=== PATIENT | female | born 1955 | race American Indian/Alaskan Native ===

== ENCOUNTER 2018-01-09 10:17 | Outpatient (CLI) | payer MEDICAID ==
--- NOTE | 2018-01-09 11:04 | Cat Scan Report ---
CT chest without contrast: COPD. Transverse images are obtained through the chest into the upper abdomen. Coronal and sagittal 2-D reformatted images included. No axillary adenopathy. 1.4 cm right pretracheal lymph node and a 9.4 mm left pretracheal lymph node. No obvious hilar adenopathy. The central airways are patent. The thoracic aorta is normal in size. Normal sized heart. Scattered blebs in periphery both upper lobes with some scattered emphysematous changes throughout both lungs. The lungs are generally hyperinflated. There is focal linear atelectasis or scarring in the right middle lobe. Irregular shaped non-spiculated 6 x 14 mm mass in the right apex. Diffuse thoracic spondylosis with prominent kyphotic curvature. Impressions: 1. Suspicious right upper lobe mass and enlarged mediastinal lymph nodes. Additional evaluation is recommended. 2. Chronic lung disease consistent with emphysema.
== END 2018-01-09 10:18 | disposition home or self-care (01) ==
LOC: CT 10:17
PROVIDERS: ATTEND Internal Medicine Pulmonary Disease
DX: J44.9 Chronic obstructive pulmonary disease, unspecified (principal); M47.894 Other spondylosis, thoracic region
CPT/HCPCS: 71250

== ENCOUNTER 2019-05-25 09:38 | Outpatient (CLI) | payer MEDICAID ==
--- NOTE | 2019-05-25 12:08 | Cat Scan Report ---
CT of the chest without contrast INDICATION: Pulmonary nodule COMPARISON: 01/09/2018 FINDINGS: Small mediastinal nodes are within normal limits in size. There is slight prominence of the central pulmonary arteries. No hilar adenopathy is seen. No pleural or pericardial effusion. Upper a bdomen shows no significant abnormality. Lung windows demonstrate moderate to severe COPD changes wit h areas of bronchiectasis and scarring in the lingula and right middle lobe. In the right upper lobe there is a spiculated nodule measuring 1.9 x 0.9 cm. This previously measured 1.4 x 0.6 cm so the nod ule has increased in size in the interval. No new nodules, masses or infiltrates. IMPRESSION: Increasing size of the right apical lung nodule suspicious for neoplasm. PET scan may be of benefit to confirm hypermetabolic activity. Automated exposure control was utilized to diminish radiation dose. Signer Name: Dong Alcazar MD Signed: 05/25/2019 12:03 PM Workstation Name: [id number]
== END 2019-05-25 09:39 | disposition home or self-care (01) ==
LOC: CT 09:38
PROVIDERS: ATTEND Specialist
DX: R91.1 Solitary pulmonary nodule (principal)
CPT/HCPCS: 71250